=== PATIENT | male | born 1995 | race Caucasian/White ===

== ENCOUNTER → 2016-09-28 | Outpatient (CLI) | payer BC, OTHER | LOC: VM.MRI 12:13 | PROVIDERS: ATTEND Physician Assistant Medical | DX: S49.91XA Unspecified injury of right shoulder and upper arm, initial encounter (principal); R93.7 Abnormal findings on diagnostic imaging of other parts of musculoskeletal system; M89.511 Osteolysis, right shoulder; X58.XXXA Exposure to other specified factors, initial encounter | CPT/HCPCS: 73221-RT ==

== ENCOUNTER 2020-01-17 11:14 | Emergency (ER) | payer BC, OTHER ==
--- NOTE | 2020-01-17 11:56 | EDM.PDOC ---
ED HPI GENERAL MEDICAL PROBLEM - General Chief Complaint: Respiratory Problem Stated Complaint: CDC REVIEW Time Seen by Provider: 01/17/20 11:30 Source of Information: Reports: Patient History Limitations: Reports: No Limitations - History of Present Illness INITIAL COMMENTS - FREE TEXT/NARRATIVE: Patient presents to ER with complaints of one week history of sinus congestion and drainage, shortness of breath and mild cough. Has not had a fever. Feels like he has lost sense of taste but also notes "could be from so much postnasal drainage". Mild nausea at times, no vomiting. Has maintained a good appetite. Travels to and from [place] to [facility] for work. Unknown if had positive exposure. Does have history of asthma, has been using his inhaler more over the last week but hasn't seen much improvement with that. Onset: Gradual Duration: Week(s):, Waxing/Waning Location: Reports: Head, Face, Chest Improves with: Reports: Rest Worsens with: Reports: Movement Associated Symptoms: Reports: Cough, Headaches, Shortness of Breath, Weakness. 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 Denies: Fever, Decreased Appetite HEENT: Reports: Rhinitis, Sinus Problem, Throat Pain. Denies: Ear Pain, Vertigo Respiratory: Reports: Shortness of Breath, Cough. Denies: Wheezing, Sputum Cardiovascular: Denies: Chest Pain, Edema, Lightheadedness Endocrine: Reports: Fatigue GI/Abdominal: Reports: Nausea. Denies: Abdominal Pain, Vomiting : Reports: No Symptoms Musculoskeletal: Reports: No Symptoms Skin: Reports: No Symptoms Neurological: Reports: Weakness ED EXAM, GENERAL - Physical Exam Exam: See Below Exam Limited By: No Limitations General Appearance: Alert, WD/WN, Mild Distress Ears: Normal External Exam, Normal TMs Nose: Normal Inspection, Normal Mucosa, Nasal Drainage (turbinates red, thick rhinorrhea noted) Throat/Mouth: Normal Inspection, Other (mild posterior pharynx erythema noted) Head: Normocephalic Neck: Normal Inspection, Supple, Non-Tender Respiratory/Chest: No Respiratory Distress, Lungs Clear, Normal Breath Sounds Cardiovascular: Regular Rate, Rhythm GI/Abdominal: Normal Bowel Sounds, Soft, Non-Tender Extremities: Normal Inspection, No Pedal Edema Neurological: Alert, Oriented Skin Exam: Warm, Dry Course - Orders/Labs/Meds Orders: Active Orders 24 hr Category Date Time Status CORONAVIRUS COVID-19 PCR PHL Stat Lab 01/17/20 11:38 Received CULTURE STREP A CONFIRMATION [] Stat Lab 01/17/20 11:38 Results STREP SCRN A RAPID W CULT CONF [] Stat Lab 01/17/20 11:38 Results Labs: Laboratory Tests 01/17/20 01/17/20 Range/Units 11:35 11:35 WBC 6.4 (4.0-10.0) x10^3/uL RBC 5.16 (4.5-6.0) x10^6/uL Hgb 16.2 (14.0-18.0) g/dL Hct 45.7 (40.0-52.0) % MCV 88.6 (78.0-93.0) fL MCH 31.4 (26.0-32.0) pg MCHC 35.4 (32.0-36.0) g/dL RDW Coeff of Terrell 12.6 (10.0-15.0) % Plt Count 190 (130-400) x10^3/uL Neut % (Auto) 74.5 (50.0-80.0) % Lymph % (Auto) 16.0 L (25.0-50.0) % [place] % (Auto) 7.4 (2.0-11.0) % Eos % (Auto) 1.9 (0.0-4.0) % Baso % (Auto) 0.2 (0.2-1.2) % Sodium 146 H (136-145) mmol/L Potassium 3.7 (3.5-5.1) mmol/L Chloride 108 H (98-107) mmol/L Carbon Dioxide 25 (21-32) mmol/L Anion Gap 16.7 (10-20) mmol/L BUN 14 (7-18) mg/dL Creatinine 0.9 (0.70-1.30) mg/dL Est Cr Clr Drug Dosing TNP Estimated GFR (MDRD) > 60 Glucose 116 H (74-106) mg/dL Calcium 8.8 (8.5-10.1) mg/dL C-Reactive Protein 0.4 (<=0.9) mg/dL Meds: Medications Discontinued Medications Generic Name Dose Route Start Last Admin Trade Name Praneeth PRN Reason Stop Dose Admin Doxycycline Monohydrate 1 packet 01/17/20 12:53 01/17/20 12:58 Take Home: Doxycycline 100 Mg, 4 Tab Pack PO 01/17/20 12:54 1 packet ONETIME ONE Administration Methylprednisolone Sodium Succinate 125 mg 01/17/20 12:53 01/17/20 12:58 Solu-Medrol IVPUSH 01/17/20 12:54 125 mg ONETIME ONE Administration - Re-Assessments/Exams Free Text/Narrative Re-Assessment/Exam: 01/17/20 12:23 All tests at this point negative, chest xray is clear. Oxygen sat maintains at 96%. Patient informed. Questions if exposure at work with "toxins" makes his breathing more difficult. Advised may need to wear mask/take more precautions to prevent exposure to dusts/welding products, etc. Due to persistent sinus congestion and asthma concerns, did give a dose of Solu Medrol and started patient on doxycycline. Departure - Departure Time of Disposition: 13:02 Disposition: Home, Self-Care 01 Condition: Good Clinical Impression: Exacerbation of asthma - Discharge Information *PRESCRIPTION DRUG MONITORING PROGRAM REVIEWED*: No *COPY OF PRESCRIPTION DRUG MONITORING REPORT IN PATIENT RICKIE: No Instructions: Asthma, Adult Referrals: PCP,None [Primary Care Provider] - Forms: ED Department Discharge Additional Instructions: 1. Rest 2. Push fluids 3. Continue to use albuterol inhaler 4. Will contact you with covid results 5. Quarantine until results received 6. Wear mask/protection around external work element/exposure 7. Follow up if persisting symptoms once COVID is resulted 8. Doxycycline 100 mg twice a day for 10 days Sepsis Event Note - Focused Exam Date Exam was Performed: 01/17/20 Time Exam was Performed: 13:01 - My Orders Last 24 Hours: My Active Orders 01/17/20 11:38 CORONAVIRUS COVID-19 PCR PHL Stat CULTURE STREP A CONFIRMATION [RM] Stat STREP SCRN A RAPID W CULT CONF [RM] Stat - Assessment/Plan Last 24 Hours: My Active Orders 01/17/20 11:38 CORONAVIRUS COVID-19 PCR PHL Stat CULTURE STREP A CONFIRMATION [RM] Stat STREP SCRN A RAPID W CULT CONF [RM] Stat
[2020-01-17 12:01] LABS: ANION GAP 16.7 mmol/L (10-20); CHLORIDE,CL 108 mmol/L (98-107); SODIUM,NA 146 mmol/L (136-145)
--- NOTE | 2020-01-17 12:10 | CR ---
[id number] RAD/RAD Chest PA or AP 1V EXAM: RAD Chest PA or AP 1V INDICATION: SHORTNESS OF BREATH. COMPARISON: None. DISCUSSION: Cardiomediastinal silhouette is normal in size and contour. No infiltrate, effusion, pneumothorax, or edema. IMPRESSION: No significant cardiopulmonary abnormality. Tim Vaughn DO 01/17/20 1791 Thank you for allowing us to participate in the care of your patient.
[2020-01-17] MEDS: methylPREDNISolone Sodium Succinate 125 MG/2 ML SDV IVPUSH ONE (12:58)
[2020-01-17] MEDS: Take Home: Doxycycline 100 MG Tab, 4 Tab Pack PO ONE (12:58)
[2020-01-17 14:51] VITALS: BP 129/75; PULSE 83
== END 2020-01-17 13:05 | disposition home or self-care (01) ==
LOC: VM.ED 11:14
DX: J45.901 Unspecified asthma with (acute) exacerbation (principal); Z20.828 Contact with and (suspected) exposure to other viral communicable diseases
CPT/HCPCS: 71045; 80048; 85025; 86140; 87081; 87804; 87804-59; 87880-QW; 96374; 99285-25; A9270-GY; J2930; U0002

== ENCOUNTER 2023-05-08 22:36 | Emergency (ER) | payer BC ==
[2023-05-08] MEDS ORDERED: EPINEPHrine 1:10,000 1 MG/10 ML Syringe ONE ×10 (22:39→22:48)
[2023-05-08] MEDS ORDERED: Sodium Chloride 0.9% 1,000 ML IV ONE (22:39)
[2023-05-08] MEDS ORDERED: Sodium Bicarbonate 8.4% 50 MEQ/50 ML Syringe ONE (22:39)
[2023-05-08 22:57] LABS: BASOPHILS PERCENT AUTO 0.2 % (0.2-1.2); EOSINOPHILS ABSOLUTE AUTO 0.1 x10^3/uL (0.0-0.5); EOSINOPHILS PERCENT AUTO 0.8 % (0.0-4.0); HEMATOCRIT 32.2 % (40.0-52.0); HEMOGLOBIN 11.3 g/dL (14.0-18.0); IMMATURE GRAN ABSOLUTE AUTO 0.02 x10^3/uL (0.00-0.07); LYMPHOCYTES ABSOLUTE AUTO 4.1 x10^3/uL (1.0-4.8); LYMPHOCYTES PERCENT AUTO 65.2 % (25.0-50.0); MEAN CORPUSCULAR HEMOGLOBIN 32.6 pg (26.0-32.0); MEAN CORPUSCULAR HGB CONC 35.1 g/dL (32.0-36.0); MEAN CORPUSCULAR VOLUME 92.8 fL (78.0-93.0); MONOCYTES ABSOLUTE AUTO 0.7 x10^3/uL (0.0-0.8); MONOCYTES PERCENT AUTO 10.6 % (2.0-11.0); NEUTROPHILS ABSOLUTE AUTO 1.4 x10^3/uL (1.8-7.7); NEUTROPHILS PERCENT AUTO 22.9 % (50.0-80.0); PLATELET COUNT,PLT 122 x10^3/uL (130-400); RED BLOOD CELL COUNT 3.47 x10^6/uL (4.5-6.0); WHITE BLOOD CELL COUNT,WBC 6.2 x10^3/uL (4.0-10.0)
[2023-05-08 23:10] LABS: BLOOD UREA NITROGEN,BUN 16 mg/dL (7-18); CALCIUM 8.2 mg/dL (8.5-10.1); CARBON DIOXIDE,CO2 21 mmol/L (21-32); CHLORIDE,CL 106 mmol/L (98-107); CREATININE 1.2 mg/dL (0.70-1.30); GLUCOSE RANDOM 86 mg/dL (70-99); POTASSIUM,K 4.5 mmol/L (3.5-5.1); SODIUM,NA 141 mmol/L (136-145)
[2023-05-08 23:15] LABS: ANION GAP 18.5 mmol/L (5-15); ESTIMATED GFR 84 mL/min (>=60)
[2023-05-08 23:24] LABS: INR 1.2 (2.0-3.5); PROTHROMBIN TIME 12.7 SEC (9.5-12.2); PTT,PARTIAL THROMBOPLSTIN TIME 28.2 SEC (23.6-33.6)
== END 2023-05-09 01:22 | disposition expired ==
LOC: VM.ED 22:36
DX: S06.9X0A Unspecified intracranial injury without loss of consciousness, initial encounter (principal); W22.8XXA Striking against or struck by other objects, initial encounter
CPT/HCPCS: 31500; 36415; 36680; 80048; 85025; 85610; 85730; 92950; 99291; J0171; J7030; J3490